=== PATIENT | female | born 1965 | race Caucasian/White ===

== ENCOUNTER 2024-12-04 10:46 | Outpatient (CLI) | payer SELFPAY ==
--- NOTE | ~2024-12-04 | US_ITS ---
EXAMINATION: US pelvic complete INDICATION: Uterine fibroids. Comparison:No prior studies for comparison. TECHNIQUE: Multiple transabdominal sonographic images of the pelvis performed. FINDINGS: The uterus measures 6.5 x 3.1 x 4.7 cm. There are small uterine fibroids, largest measuring 2 cm. Largest measures 2 x 1.7 x 1.6 cm. Smaller fibroid measures 1.7 x 1.4 x 1.5 cm. The endometria l complex measures 6 mm. The right ovary measures 2.4 x 1.8 x 1.6 cm and the left ovary measures 2 x 1.4 x 1 cm. There are sm all follicles in each ovary. Normal doppler signal in both ovaries. There is no free fluid in the pelvis. There are no abnormal masses seen on either side. IMPRESSION: 1. Small uterine fibroids, largest measuring 2 cm. Reviewed, dictated and finalized at location A. [facility]
== END 2024-12-04 10:47 | disposition home or self-care (01) ==
PROVIDERS: PCP Nurse Practitioner Family; Visit Provider Nurse Practitioner Family
DX: D25.9 Leiomyoma of uterus, unspecified (principal)
CPT/HCPCS: 76856